=== PATIENT | female | born 1955 | race Caucasian/White ===

== ENCOUNTER → 2016-11-14 | Outpatient (CLI) | payer OTHER ==
--- NOTE | 2016-11-14 12:34 | MAMMOGRAPHY REPORT ---
BILATERAL DIGITAL SCREENING MAMMOGRAM WITH CAD: 11/14/2016 CLINICAL HISTORY: Routine screening. Patient has no complaints. TECHNIQUE: Current study was also evaluated with a Computer Aided Detection (CAD) system. Bilateral CC and MLO views were obtained. COMPARISON: Comparison is made to exams dated: 09/25/2015 mammogram, 09/19/2014 mammogram, 09/13/2013 ma mmogram, 09/21/2012 mammogram, 09/07/2012 mammogram, and 09/09/2011 mammogram - [facility] er. BREAST COMPOSITION: There are scattered areas of fibroglandular density in both breasts. FINDINGS: No suspicious masses, calcifications, or areas of architectural distortion are noted in ei ther breast. There has been no significant interval change compared to prior exams. IMPRESSION: ACR BI-RADS CATEGORY 1: NEGATIVE There is no mammographic evidence of malignancy. A 1 year screening mammogram is recommended. The pa tient will receive written notification of the results. Approximately 10% of breast cancers are not detected with mammography. A negative mammographic report should not delay biopsy if a clinically suggestive mass is present. Bing Vega M.D. /:11/14/2016 09:47:26 Content Administrator: Buffy OG)(Mateo), [facility] letter sent: Normal 1/2 BI-RADS Code: ACR BI-RADS Category 1: Negative
== END | disposition home or self-care (01) ==
LOC: C.MAMM 09:05
PROVIDERS: ATTEND Physician Assistant
DX: Z12.31 Encounter for screening mammogram for malignant neoplasm of breast (principal)

== ENCOUNTER → 2017-07-24 | Outpatient (CLI) | payer OTHER ==
[~2017-07-24] VITALS: Ht 160 cm; Wt 78.2 kg
[2017-07-24 12:56] VITALS: BP 118/83; PULSE 93; Ht 160 cm; Wt 78.2 kg
== END | disposition home or self-care (01) ==
LOC: C.NEUR 12:40
PROVIDERS: ATTEND Internal Medicine Pulmonary Disease
DX: R53.83 Other fatigue (principal); G47.19 Other hypersomnia; G25.81 Restless legs syndrome; R06.83 Snoring; M79.7 Fibromyalgia; F51.01 Primary insomnia

== ENCOUNTER → 2017-10-10 | Outpatient (CLI) | payer OTHER ==
--- NOTE | 2017-10-11 06:25 | PAP/PSG TECHNICIAN REPORT ---
[facility] Staff Counsel Polysomnogram Report Study name: None Report date: 10/11/2017 Study date: 10/10/2017 Referring Physician: Inocencia Vásquez PA-C Name: HUGH POSADA I Interpreting Physician: Miky Lopez M.D. Date of : 1955 Staff Counsel: Becki Davila [facility]. Sex: Female Age: 61 Study Type: PSG PAP Weight: 172 lbs 14 in Height: 61 years, Height 5' 3" Neck Circum: BMI: 30.47 Medications: Amitriptyline 25 mg, Aspirin 81 mg, Atorvastatin Calcium 10 mg, Citracal slow release 600-40-500 mg-mg-unit, Duloxetine 60 mg, Flonase allergy 50 mcg, IBU 200, Magnesium Oxide, Ocuvite, Paroxetine 30 mg, Vitamin D3 Patient History 61 yr-old female here for a new CPAP treatment study. She was found to be positive for AASHISH with an AHI of 12.5. She chose a Mirage FX Soft edge nasal mask size small from [employer]. The test was started on room air and 4 CMH2O. ETCO2 testing was not utilized during this study. Room 1 Parameters Monitored NPSG: E1-M2, E2-M1, Fp1-M2, Fp2-M1, F3-M2, F4-M2, F4-M1, C3-M2, C4-M2, C4-M1, O1-M2, O2-M2, O2-M1, T3-M2, T4-M1, P3-M2, P4-M1, CHIN1, CHIN2, HR, EKG, Legs, PFLOW, SNOR, FLOW, CFLOW, Tidal Volume, THOR, ABDO, SpO2, PLTH, CPRESS, ETCO2 Wave, ETCO2, pH Sleep Architecture Sleep Stages Time at Lights Off 9:58:56 PM STAGES Time (min.) TST (%) Time at Lights On 5:30:56 AM Wake 48.5 -- Total Recording Time (TRT) 452.00 min. N1 64.5 16 Total Sleep Period (TSP) 444.5 min. N2 233.0 58 Total Sleep Time (TST) 403.5min. N3 31.0 8 Awake Time 48.5 min. REM 75.0 19 Wake after Sleep Onset 41.0 min. Sleep Efficiency (SE) 89 % Sleep Onset Latency (BENJI) 7.5 min. Number of Stage 1 Shifts None Awakenings 31 Stage Changes 153 Number of REM periods 7 REM 75.0 19 REM Latency 174.0 min. NREM 328.5 81 Body Position Analysis Supine Right Left Side Prone Vertical Total Sleep Time (min.) 282.1 37.7 120.4 158.18 0.0 0.0 Total Sleep Time (%) 61% 9% 30% 39 0% N/A% Total Sleep Time REM (min.) 27.3 0.0 47.7 None 0.0 0.0 Total Sleep Time NREM (min.) 218.0 37.7 72.7 None 0.0 0.0 Intermittent Wake (min.) 36.7 6.6 5.1 None 0.0 0.0 Total Sleep Period (%) 62% None None None None None Arousals Myoclonus (PLM) * Events Count Index Events Count Index Spontaneous 86 13 Events Awake (PLMW) 37 45.8 Respiratory 6 0.6 Events Asleep w/ Arousal (PLMA) 12 1.8 PLM 12 2 Events Asleep w/o Arousal (PLMS) 42 6.2 Snoring 7 1 Total Asleep 54 8.0 Total 111 17 Total 91 12 Respiratory Analysis * CA OA MA CH H RERA Total Count 2 0 0 0 21 3 23 Index 0.3 0.0 0.0 0 3.1 0 3.9 Mean Duration 12.2 0.0 0.0 0.00 14.3 16.7 14.4 Longest Duration 14.0 0.0 0.0 0.00 0.0 18.3 22.7 Respiratory Event Summary Total Supine ~Supine Right Left Prone REM NREM Apneas Count 2 2 0 0 0 N/A 0 2 Index 0.3 0 0 0.0 0.0 N/A 0 0 Hypopneas (4% Desat) Count 21 20 1 0 1 N/A 2 19 Index 3.1 4.9 0 0.0 0.5 N/A 1.6 3.5 Apneas & All Hypopneas Count 23 22 1 0 1 N/A 2 21 Index 3.4 5 0 0 0 N/A 1.6 3.8 Respiratory Events (Ac[employer]ical Tile Patternmaker+All Hyp+RERA) Count 23 23 3 1 2 N/A 2 21 Index 3.9 6 1 1.6 1.0 N/A 2.4 4.2 Respiratory Related Arousal Count 6 23 2 1 1 N/A 1 3 Index 0.6 0 1 2 0 N/A 1 1 Snoring Analysis Supine Right Left Prone REM NREM Total Snore duration 2.1 min Snores count 17 7 7 N/A 9 22 31 Snore mean duration 4.1 Sec Snores index 4 11 3 N/A 7.2 4.0 4.6 TST with snoring (%) 0.5% Desaturation Event Summary: Minimum %SpO2 Event Count Mean/Min/Max Duration(sec.) Desaturation Index % Time In Bed > 90 57 21.3 / 8.3 / 57.0 7.7 98.9 86 - 90 0 N/A 0.0 0.7 81 - 85 0 N/A 0.0 0.5 76 - 80 0 N/A 0.0 0.0 71 - 75 0 N/A 0.0 0.0 66 - 70 0 N/A 0.0 0.0 61 - 65 0 N/A 0.0 0.0 56 - 60 0 N/A 0.0 0.0 51 - 55 0 N/A 0.0 0.0 < 50 0 N/A 0.0 0.0 Total REM NREM Awake <50% 0.0 min. 0.0 min. 0.0 min. 0.0 min. 51 - 60% 0.0 min. 0.0 min. 0.0 min. 0.0 min. 61 - 70% 0.0 min. 0.0 min. 0.0 min. 0.0 min. 71 - 80% 0.2 min. 0.0 min. 0.2 min. 0.0 min. 81 - 90% 5.0 min. 0.6 min. 4.1 min. 0.4 min. 91 - 100% 444.9 min. 74.4 min. 324.2 min. 46.4 min. Average 94 94 93 95 Minimum SpO2 80 89 80 84 Desaturation Event Index 7.6 3.2 8.4 12.4 # Desat. Events below 89% 1 N/A 1 N/A Time(%) with Saturation below 89% 0.5 0.0 0.5 0.1 Time(min.) with Saturation below 89% 2.3 0.0 2.0 0.2 Time (mins) REM (mins) NREM (mins) % of TST SpO2 Below 90% 8 N/A N8 0.5 SpO2 Below 88% 1 0 0 1 Heart Rate Analysis Min (bpm) Max (bpm) Average (bpm) Awake 66 96 78 NREM 63 98 75 REM 60 90 73 Overall 60 98 74 Supplemental O2 Values Minimum O2 level: None Value Start Time End Time Staff Counsel Comments Ms. Posada slept in the right, left, and supine positions. An epoch of EKG was printed off for review. Some PLMs were noted. No bruxism noted. CPAP was initiated at +4 CMH2O and up-titrated to a level of +8 CMH2O, Cflex 2 which nearly eliminated all respiratory events and snoring. A Mirage FX Soft edge nasal mask size small from [employer] was used during titration. She did not wake up to use the restroom during the night. Ms. Posada stated that she was very restless. The final report will be interpreted and signed by a sleep physician. The completed physician report will then be placed in the patient medical record. CPAP REPORT Therapy Detail Time / Page # Comment CPAP 4 cm H2O Nasal Mask Flex Pressure Relief Humidifier on 9:57:47 PM / pg. 225 CPAP 6 cm H2O Nasal Mask Flex Pressure Relief Humidifier on 10:38:30 PM / pg. 307 INCREASED FOR HYPOPNEAS CPAP 7 cm H2O Nasal Mask Flex Pressure Relief Humidifier on 11:46:03 PM / pg. 442 INCREASED FOR MORE HYPOPNEAS CPAP 8 cm H2O Nasal Mask Flex Pressure Relief Humidifier on 12:40:27 AM / pg. 551 INCREASED FOR HYPOPNEAS Therapy Event: Therapy (cm H20) 4 6 7 8 Total Time at Pressure (min.) 39.6 67.6 54.4 290.5 TST at Pressure (min.) 26.6 59.1 51.9 266.0 # Periods 1 1 1 1 Sleep Onset (min.) 7.5 0.0 0.0 5.5 REM Onset (min.) N/A N/A N/A 20.0 Sleep Efficiency % 67 87 95 91 Wakefulness (%) 32.9 12.6 4.6 8.4 Wakefulness (min.) 13.0 8.5 2.5 24.5 NREM 1 (%) 27.8 10.5 9.9 14.1 NREM 1 (min.) 11.0 7.1 5.4 41.0 NREM 2 (%) 39.3 31.0 85.5 51.6 NREM 2 (min.) 15.6 20.9 46.5 150.0 NREM 3 (%) 0.0 45.9 0.0 0.0 NREM 3 (min.) 0.0 31.0 0.0 0.0 REM (%) 0.0 0.0 0.0 25.8 REM (min.) 0.0 0.0 0.0 75.0 # Arousals 7 16 17 71 Arousal Index 15.8 16.3 19.7 16.0 # Snore 4 6 1 20 Snore Index 9.0 6.1 1.2 4.5 AHI 6.8 5.1 5.8 2.3 AHI Supine 11.6 9.3 10.0 3.5 AHI Non-Supine 0.0 0.0 2.1 0.0 NREM AHI 6.8 5.1 5.8 2.5 REM AHI N/A N/A N/A 1.6 RDI 9.0 6.1 5.8 2.5 # Obstructive 0 0 0 0 # Central Ap 0 0 0 2 # Mixed 0 0 0 0 # Hypopneas 3 5 5 8 RERAS 1 1 0 1 Total Respiratory Events 4 6 5 11 Time Below SpO2 89.00% (min.) 0.0 0.0 0.0 2.0 Mean NREM SpO2 (%) 94 93 94 93 Mean REM SpO2 (%) N/A N/A N/A 94 Mean Sleep SpO2 (%) 94 93 94 93 Min NREM SpO2 (%) 90 90 90 80 Min REM SpO2 (%) N/A N/A N/A 89 Position Supine (min.) 15.6 32.3 23.9 173.6 Position Non-supine (min.) 11.0 26.7 28.0 92.4 LM Index Sleep 9.0 5.1 3.5 9.5 LM Index NREM 9.0 5.1 3.5 4.7 LM Index REM N/A N/A N/A 21.6 Mean Heart Rate (bpm) 80 81 77 72 Min Heart Rate (bpm) 69 64 65 60
--- NOTE | 2017-10-20 16:09 | POLYSOMNOGRAPH REPORT ---
CLINICAL DATA: A 61-year-old female with BMI of 30.5, referred by myself, Inocencia Vásquez and Dr. Marta Syed for a CPAP study. She had a baseline PSG which showed mild AASHISH with an AHI of 12.5 with nocturnal hypoxemia. SLEEP ARCHITECTURE: Total sleep period was 444.5 minutes. Total sleep time was 403.5 minutes divided between 328.5 minutes of non-REM sleep and 75 minutes of REM sleep. Sleep onset latency was 7.5 minutes. REM latency was 174 minutes. Sleep efficiency was 89%. Wake after sleep onset was 41 minutes. Sleep consisted of stage N1 16%, stage N2 58%, stage N3 8%, and REM 19%. AROUSAL DATA: 111 arousals were recorded for an index of 17 per hour. PLM DATA: 54 limb movements during sleep were noted for an index of 8 per hour with arousal index of 1.8 per hour. RESPIRATORY DATA: The AHI was 3.4. There were 2 central apneic episodes. The longest duration of apnea was 14 seconds. There were 21 hypopneic episodes with a mean duration of 14.3 seconds. OXIMETRY DATA: Transient hypoxemia was seen. Oxygen chaz was 80% during non-REM sleep. Mean saturation was 94%. Time below 88% was 1 minute. EKG: Heart rates ranged from 60-98 beats per minute. There were 2 epochs where there appeared to be irregular p waves. It was possibly consistent with transient atrial flutter. [employer]PER[employer]'S COMMENTS AND TREATMENT SUMMARY: The patient slept in the right, left, and supine positions. A Mirage FX soft edge nasal mask size small from [employer] was used. The patient was titrated up to 8 cm of water pressure, C-Flex setting #2. At her final pressure setting, the patient slept for 266 minutes with an AHI of 2.3. IMPRESSION: Obstructive sleep apnea corrected with CPAP, 8 cm of water pressure, C-Flex setting #2, Mirage FX soft edge nasal mask size small from [employer]. RECOMMENDATIONS: The patient should be started on the above-noted treatment regimen and seen back in followup within 90 days to document efficacy and compliance. Holter monitor/ Cardiology evaluation may be of benefit. MTDD
== END | disposition home or self-care (01) ==
LOC: C.NEUR 20:00
PROVIDERS: ATTEND Physician Assistant Medical
DX: G47.33 Obstructive sleep apnea (adult) (pediatric) (principal)